=== PATIENT | male | born 1955 | race American Indian/Alaskan Native ===

== ENCOUNTER 2017-11-15 09:30 | Outpatient (CLI) | payer OTHER ==
--- NOTE | 2017-11-15 11:57 | XRay Report ---
CERVICAL SPINE SERIES THREE VIEWS: 11/15/17 09:30:00 CLINICAL: Neck pain. FINDINGS: Normal vertebral body height and alignment. Exaggerated cervical lordosis and moderate degenerative disc disease at C5-6. C5-6 disc space narrowing with large anterior osteophyte. The rest of the disc spaces are normal. No fracture. The facet joints are normal. Normal odontoid and C1. Normal soft tissues and airway. IMPRESSION: Moderate degenerative disc disease at C5-6.
== END 2017-11-15 09:31 | disposition home or self-care (01) ==
LOC: SPVIMAG 09:30
DX: M50.322 Other cervical disc degeneration at C5-C6 level (principal)
CPT/HCPCS: 72040